=== PATIENT | male | born 1985 | race Caucasian/White ===

== ENCOUNTER 2018-04-15 22:38 | Emergency (ER) | payer SELFPAY ==
[2018-04-15 23:18] LABS: #Basophils 0.1 thou/uL (0.0-0.2); #Eosinphils 0.1 thou/uL (0.0-0.7); #Lymphocytes 3.3 thou/uL (1.20-3.40); #Monocytes 0.7 thou/uL (0.11-0.59); #Neutrophils 4.3 thou/uL (1.40-6.50); %Basophils 0.8 % (0.0-1.0); %Eosinophils 0.8 % (0.0-10.0); %Lymphocytes 39.2 % (21.0-51.0); %Neutrophils 51.3 % (42.0-75.0); Hemoglobin 14.2 g/dL (14.0-18.0); Mean Corpuscular Hemoglobin 30.8 pg (27.0-31.0); Mean Corpuscular Volume 90.7 fL (78.0-98.0); Mean Platelet Volume 7.8 fL (7.4-10.4); Platelet Count 257 thou/uL (130-400); RBC Distribution Width 12.4 % (11.5-14.5); Red Blood Cell (RBC) Count 4.61 mill/uL (4.70-6.10); White Blood Cell (WBC) Count 8.3 thou/uL (4.8-10.8)
--- NOTE | 2018-04-15 23:22 | RAD ---
PORTABLE UPRIGHT FRONTAL CHEST RADIOGRAPH 04/15/18 COMPARISON: None. HISTORY: Chest pain, nausea, and dizziness. FINDINGS: The heart and mediastinal contours are unremarkable. No pneumothorax, pleural fluid, focal consolidat ion, or alveolar edema. IMPRESSION: No acute findings. POS: [facility]
[2018-04-15 23:40] LABS: ALT (SGPT) 41 U/L (8-55); AST (SGOT) 26 U/L (5-34); Albumin 4.3 g/dL (3.5-5.0); Alkaline Phosphatase 103 U/L (40-150); Anion Gap 12 mmol/L (10-20); BUN (Urea Nitrogen) 19 mg/dL (8.9-20.6); Bilirubin, Total 0.4 mg/dL (0.2-1.2); Calc. Creatinine Clearance 0 mL/min (70-130); Calcium 9.2 mg/dL (7.8-10.44); Carbon Dioxide 26 mmol/L (22-29); Chloride 103 mmol/L (98-107); Estimated GFR-MDRD 87; Globulin 2.9 g/dL (2.4-3.5); Glucose 114 mg/dL (70-105); Potassium 3.7 mmol/L (3.5-5.1); Protein, Total 7.2 g/dL (6.0-8.3); Sodium 137 mmol/L (136-145)
[2018-04-15 23:44] LABS: CKMB 1.8 ng/mL (0-6.6); Troponin I Less than 0.010 ng/mL (< 0.028)
--- NOTE | 2018-04-15 23:55 | CT ---
HEAD CT WITHOUT CONTRAST: 04/15/18 COMPARISON: None. HISTORY: Dizziness, weakness, and headache. TECHNIQUE: Serial axial CT imaging at 5 mm intervals from vertex through skull base without contrast. FINDINGS: The imaged paranasal sinuses and mastoid air cells are well aerated. There is no intracranial hemorrh age, midline shift, mass effect, or ventricular enlargement. IMPRESSION: No acute findings. POS: [facility]
[2018-04-16 00:25] LABS: Acetaminophen Less than 6.0 mcg/mL (10.0-30.0); Alcohol Less than 10 mg/dL (Less than 10); Salicylate Less than 8.0 mg/dL (15.0-30.0)
--- NOTE | 2018-04-16 08:09 | CT ---
PRELIMINARY REPORT/[facility]/EMERGENCY AFTER HOURS PROCEDURE: EXAM: CT Angiography Chest With Intravenous Contrast EXAM DATE/TIME: 04/16/2018 12:59 AM CLINICAL HISTORY: 32 years old, male; Pain; Chest pain; Abdominal pain; Other: Cp; Patient HX: Cp that started 1 hour p ta after feeling frustrated prior to ems arrival. Patient reports having felt dizzy, weak, and nauseo us TECHNIQUE: Axial computed tomographic angiography images of the chest with intravenous contrast using CT angiogr aphy protocol. Coronal and sagittal reformatted images were created and reviewed. MIP reconstructed images were created and reviewed. COMPARISON: No relevant prior studies available. FINDINGS: Pulmonary arteries: No evidence of pulmonary embolism. Aorta: No acute findings. No aortic aneurysm or dissection. Lungs: No mass. No consolidation. Mild dependent atelectasis. Pleural space: No pneumothorax. No pleural effusion. Heart: No cardiomegaly. No pericardial effusion. Mediastinum: No acute findings. Small hiatal hernia. Bones/joints: No acute fracture. Soft tissues: No acute findings. Lymph nodes: No enlarged lymph nodes. IMPRESSION: No acute findings. EXAM: CT Angiography Abdomen With Intravenous Contrast EXAM DATE/TIME: 04/16/2018 12:59 AM CLINICAL HISTORY: 32 years old, male; Pain; Chest pain; Abdominal pain; Other: Cp; Patient HX: Cp that started 1 hour p ta after feeling frustrated prior to ems arrival. Patient reports having felt dizzy, weak, and nauseo us TECHNIQUE: Axial computed tomographic angiography images of the abdomen with intravenous contrast material, incl uding non-contrast images if performed. MIP and/or 3D reconstructed images were created and reviewed. Coronal and sagittal reformatted images were created and reviewed. MIP reconstructed images were created and reviewed. COMPARISON: No relevant prior studies available. FINDINGS: Lungs: No acute findings. VASCULATURE: Aorta: No acute findings. No aortic aneurysm. No aortic dissection. Celiac Trunk and Mesenteric Arteries: No acute findings. No occlusion or significant stenosis. Renal Arteries: No acute findings. No occlusion or significant stenosis. ABDOMEN: Liver: No acute findings. No mass. Gallbladder and bile ducts: No calcified stones. No ductal dilation. Pancreas: No acute findings. No ductal dilation. Spleen: No acute findings. No splenomegaly. Adrenals: No mass. Kidneys and ureters: No acute findings. No hydronephrosis. No mass. Stomach and bowel: Fecal loading. Diverticulosis. No evidence of bowel obstruction. Appendix: Normal appendix. Intraperitoneal space: Minimal mesenteric stranding. No free air. No significant fluid collection. Bones/joints: No acute fracture. No dislocation. Soft tissues: No acute findings. Lymph nodes: No significant adenopathy. Small and a few prominent mesenteric lymph nodes. IMPRESSION: No acute findings. Thank you for allowing us to participate in the care of your patient. Dictated and Authenticated by: Romario Richardson MD 04/16/2018 1:50 AM Central Time ([place] & [place]) FINAL REPORT CT CHEST WITH IV CONTRAST AND 3D POSTPROCESSING CT ABDOMEN WITH IV CONTRAST AND 3D POSTPROCESSING: Date: 04/16/18 FINDINGS/IMPRESSION: I agree with the preliminary report given by Ally. POS: [facility]
[2018-04-16] MEDS ORDERED: ISOVUE-370 76%-LOCM 1 ML ONE (12:39)
== END 2018-04-16 02:39 | disposition home or self-care (01) ==
LOC: ERS 22:38
DX: R07.89 Other chest pain (principal); F43.0 Acute stress reaction
CPT/HCPCS: 36415; 70450; 71045; 71275; 80053; 80307; 82553; 84484; 85025; 93005

== ENCOUNTER 2018-12-09 18:58 | Emergency (ER) | payer SELFPAY ==
[2018-12-09 19:24] LABS: #Eosinphils 0.1 thou/uL (0.0-0.7); #Lymphocytes 1.8 thou/uL (1.20-3.40); #Monocytes 0.6 thou/uL (0.11-0.59); #Neutrophils 10.3 thou/uL (1.40-6.50); %Basophils 0.1 % (0.0-1.0); %Eosinophils 0.6 % (0.0-10.0); %Lymphocytes 14.2 % (21.0-51.0); %Monocytes 4.5 % (0.0-10.0); %Neutrophils 80.7 % (42.0-75.0); Hemoglobin 14.6 g/dL (14.0-18.0); Mean Corpuscular HGB CONC 35.1 g/dL (32.0-36.0); Mean Corpuscular Hemoglobin 30.2 pg (27.0-31.0); Mean Platelet Volume 8.1 fL (7.4-10.4); Platelet Count 239 thou/uL (130-400); RBC Distribution Width 11.8 % (11.5-14.5); Red Blood Cell (RBC) Count 4.81 mill/uL (4.70-6.10); White Blood Cell (WBC) Count 12.8 thou/uL (4.8-10.8)
[2018-12-09] MEDS ORDERED: Ondansetron PF 4 MG/2 ML Vial ONE (19:30)
[2018-12-09 19:46] LABS: ALT (SGPT) 44 U/L (8-55); AST (SGOT) 33 U/L (5-34); Albumin 4.4 g/dL (3.5-5.0); Alkaline Phosphatase 91 U/L (40-150); Anion Gap 17 mmol/L (10-20); BUN (Urea Nitrogen) 11 mg/dL (8.9-20.6); Bilirubin, Total 0.4 mg/dL (0.2-1.2); Calc. Creatinine Clearance 0 mL/min (70-130); Calcium 9.7 mg/dL (7.8-10.44); Carbon Dioxide 19 mmol/L (22-29); Chloride 101 mmol/L (98-107); Estimated GFR-MDRD 80; Globulin 3.8 g/dL (2.4-3.5); Glucose 124 mg/dL (70-105); Magnesium 2.4 mg/dL (1.6-2.6); Potassium 3.7 mmol/L (3.5-5.1); Protein, Total 8.2 g/dL (6.0-8.3); Sodium 133 mmol/L (136-145)
[2018-12-09 19:51] LABS: Bilirubin Negative (Negative); Blood, Urine Negative (Negative); Clarity Clear (Clear); Glucose, Urine (Dipstick) Normal (Negative); Leukocyte Negative Leu/uL (Negative); Nitrite Negative (Negative); Protein, Urine (Dipstick) 20 mg/dL (Neg-Trace); Urobilinogen Normal mg/dL (Less than 2)
[2018-12-09] MEDS ORDERED: Acetaminophen 500 MG TAB ONE (20:41)
== END 2018-12-09 22:00 | disposition home or self-care (01) ==
LOC: ERS 18:58
DX: R11.2 Nausea with vomiting, unspecified (principal); R19.7 Diarrhea, unspecified
CPT/HCPCS: 80053; 81003; 83605; 83735; 85025; 87040; 93005; 96361; 96374; J2405